=== PATIENT | male | born 1985 | race Caucasian/White ===

== ENCOUNTER 2019-06-30 07:50 | Emergency (ER) | payer OTHER ==
[~2019-06-30] VITALS: Ht 177.8 cm; Wt 74.5 kg
--- NOTE | 2019-06-30 08:03 | ED EENT ---
History of Present Illness General Chief Complaint: Dental Problems/Pain Stated Complaint: JAW PAIN Source: patient History of Present Illness Date Seen by Provider: Jun 30, 2019 Time Seen by Provider: 08:00 Initial Comments Patient is a 33 y/o male who presents to the ER today c/o dental pain. c/o pain over the left mandibular molar area. Has known dental caries and has had similar pain in the past when he states antibiox improved his sx. Today, c/o pain worsening over the last two days. No difficulty eating/drinking. No swelling of the tongue, mouth. No fever. Allergies and Home Medications Allergies Coded Allergies: No Known Drug Allergies (Unverified , 06/30/19) Home Medications Amoxicillin/Potassium Clav 1 Each Tablet, 1 EACH PO BID Prescribed by: LOUISA BAUTISTA on 06/30/19 08 Ibuprofen 800 Mg Tablet, 800 MG PO Q8H PRN for PAIN-MILD Prescribed by: LOUISA BAUTISTA on 06/30/19 08 Patient Home Medication List Home Medication List Reviewed: Yes Review of Systems Review of Systems Constitutional: no symptoms reported Eyes: No Symptoms Reported Ears: No Symptoms Reported Nose: no symptoms reported Mouth: see HPI Throat: no symptoms reported Respiratory: no symptoms reported Skin: no symptoms reported All Other Systems Reviewed Negative Unless Noted: Yes Past Dfegnvz-Dihdui-Crngjo Hx Patient Social History Recent Foreign Travel: No Physical Exam Height, Weight, BMI Height: '" Weight: lbs. oz. kg; BMI Method: General Appearance: WD/WN, no apparent distress Mouth/Throat: normal mouth inspection Neck: non-tender, supple Cardiovascular: regular rate, rhythm Respiratory: lungs clear Neurologic/Psychiatric: alert, oriented x 3 Progress/Results/Core Measures Progress Progress Note : Time: 08:08 Progress Note Patient is seen in the ER for dental pain. No gross deformity or swelling in the mouth. Mild gingival erythema in the area of concern but no abscess is seen. Patient given Rx for motrin and augmentin. Dishcarged home and reshma mmended to follow up with dentist. Departure Impression Primary Impression: Dental caries Disposition: HOME, SELF-CARE Condition: Stable Departure-Patient Inst. Referrals: NO,LOCAL PHYSICIAN (PCP/Family) Primary Care Physician Scripts Ibuprofen (Ibuprofen) 800 Mg Tablet 800 MG PO Q8H PRN for PAIN-MILD for 7 Days, #21 TAB Prov: LOUISA BAUTISTA DO 06/30/19 Amoxicillin/Potassium Clav (Augmentin 875-125 Tablet) 1 Each Tablet 1 EACH PO BID, #14 TAB 0 Refills Prov: LOUISA BAUTISTA DO 06/30/19 LOUISA BAUTISTA DO Jun 30, 2019 08:03
[2019-06-30] MEDS ORDERED: IBUP-1780 PO (08:04)
[2019-06-30] MEDS ORDERED: AMOX-358 PO (08:04)
[2019-06-30 08:08] VITALS: BP 159/69
--- OUTSIDE RECORDS SUMMARY | 2019-07-08 09:56 | XMS REPORT ---
Author Author Akash MOLINATA Organization [facility] Address [address] [place] [address] Care Team Providers Care Veneer Jointer Returner Name Role Phone NERIS MOLINA Unavailable PROBLEMS Unknown Problems ALLERGIES No Known Allergies ENCOUNTERS Encounter Location Date Diagnosis [facility] [address] [facility] [id number] [address], [place] [id number] Feb, Dental examination Z01.20 an d Caries K02.9 [facility] [address] [facility] [id number] [address] [address] Feb, Dental examination Z01.20 [facility] [address] [facility] [id number] [address] [place] [id number] Feb, Dental infection K04.7 IMMUNIZATIONS No Known Immunizations SOCIAL HISTORY Never Assessed REASON FOR VISIT dental pain x1 week K Enoch BRITO PLAN OF CARE Activity Details Follow Up if not improving with PCP or reg follow up Reason: VITAL SIGNS Weight 142.6 lbs 2018-02-23 Temperature 97.8 degrees Fahrenheit 2018-02-23 Heart Rate 80 bpm 2018-02-23 Respiratory Rate 20 2018-02-23 Blood pressure systolic 120 mmHg 2018-02-23 Blood pressure diastolic 68 mmHg 2018-02-23 MEDICATIONS Medication Instructions Dosage Frequency Start Date End Date Duration S tatus Hydrocodone-Acetaminophen 5-325 MG Orally every 6 hrs 1 tablet as n eeded 6h Feb, Feb, 3 days Active Clindamycin HCl 300 MG Orally Three times a day 1 capsule 8h Feb, Feb, 10 day(s) Active RESULTS No Results PROCEDURES No Known procedures INSTRUCTIONS MEDICATIONS ADMINISTERED No Known Medications MEDICAL (GENERAL) HISTORY Type Description Date Surgical History No Surgical history information
--- OUTSIDE RECORDS SUMMARY | 2019-07-08 09:56 | XMS REPORT | Continuity of Care Document ---
Author Organization Unknown Address Unknown Phone Unavailable Allergies Active Description Code Type Severity Reaction Onset Reported/Identified Relationship to Patient Clinical Status Yes No Known Drug Allergies [id number] Drug Allergy Unknown N/A 06/30/2019 Medications There is no data. Problems There is no data. Procedures There is no data. Results There is no data. Encounters ACCT No. Visit Date/Time Discharge Status Pt. Type Provider Facility Loc./Unit Complaint [id number] 06/30/2019 07:52:00 020 08:12:00 DIS Emergency LOUISA BAUTISTA DO [facility] ER FS JAW PAIN
== END 2019-06-30 08:12 | disposition home or self-care (01) ==
LOC: ER FS 07:52
DX: K02.9 Dental caries, unspecified (principal)
CPT/HCPCS: 99282